=== PATIENT | male | born 1955 | race Caucasian/White ===

== ENCOUNTER 2018-02-19 06:51 | Day surgery (SDC) | payer BC ==
[2018-02-19] MEDS ORDERED: TETRACAINE 0.5% OPHTH 1 DOSE AFFEYE ONE ×4 (07:30→09:55)
[2018-02-19] MEDS ORDERED: VIGAMOX 0.5% OPHTH 1 DOSE AFFEYE ONE ×5 (07:35→10:27)
[2018-02-19] MEDS ORDERED: PROLENSA OPHTH 1 DOSE AFFEYE ONE (07:46)
[2018-02-19] MEDS ORDERED: ALPHAGAN-P OPHTH 1 DOSE AFFEYE ONE (07:47)
[2018-02-19] MEDS ORDERED: MYDRIACIL OPHTH 1 DOSE AFFEYE ONE ×3 (07:48→07:50)
[2018-02-19] MEDS ORDERED: CYCLOGYL 1% OPHTH 1 DOSE OP ONE ×3 (07:48→07:50)
[2018-02-19] MEDS ORDERED: AK-DILATE 2.5% OPHTH 1 DOSE OP ONE ×3 (07:48→07:50)
[2018-02-19] MEDS ORDERED: VERSED ONE ×2 (08:11→09:51)
[2018-02-19] MEDS ORDERED: NS 500 ML IV 500 ML IV ONE (08:37)
[2018-02-19] MEDS ORDERED: AK-DILATE 10% OPHTH 1 DOSE AFFEYE ONE ×3 (09:50→09:53)
[2018-02-19] MEDS ORDERED: BETADINE OPHTH SOLN 5% EACHEYE ONE (09:55)
[2018-02-19] MEDS ORDERED: DUOVISC IO ONE (10:14)
[2018-02-19] MEDS ORDERED: BSS OPHTH (PLAIN) 500 ML with VANCOMYCIN HCL 500 MG VIAL 25 MG, ADRENALINE CHL INJ 1 MG IR ONE ×3 (10:14)
[2018-02-19] MEDS ORDERED: ADRENALINE CHL INJ IJ ONE (10:14)
[2018-02-19] MEDS ORDERED: XYLOCAINE-MPF 1% IJ ONE (10:14)
[2018-02-19 11:20] VITALS: BP 139/96
== END 2018-02-19 10:50 | disposition home or self-care (01) ==
LOC: SURG1 06:51
PROVIDERS: ATTEND Ophthalmology
PROC: 08DJ3ZZ Extraction of Right Lens, Percutaneous Approach (ICD-10-PCS; principal; 2018-02-19 09:45)
PROC: 08RJ3JZ Replacement of Right Lens with Synthetic Substitute, Percutaneous Approach (ICD-10-PCS; principal; 2018-02-19 09:45)
DX: H25.11 Age-related nuclear cataract, right eye (principal); H25.011 Cortical age-related cataract, right eye; H52.221 Regular astigmatism, right eye
CPT/HCPCS: A4222; A4217; J0170; J2250; J3370

== ENCOUNTER 2018-03-19 10:30 | Day surgery (SDC) | payer BC ==
[~2018-03-19 10:30] MED LIST: VERSED ONE
[2018-03-19] MEDS ORDERED: TETRACAINE 0.5% OPHTH 1 DOSE AFFEYE ONE ×3 (10:45→13:26)
[2018-03-19] MEDS ORDERED: VIGAMOX 0.5% OPHTH 1 DOSE AFFEYE ONE ×5 (10:50→13:51)
[2018-03-19] MEDS ORDERED: PROLENSA OPHTH 1 DOSE AFFEYE ONE (11:01)
[2018-03-19] MEDS ORDERED: ALPHAGAN-P OPHTH 1 DOSE AFFEYE ONE (11:02)
[2018-03-19] MEDS ORDERED: AK-DILATE 2.5% OPHTH 1 DOSE OP ONE ×3 (11:03→11:05)
[2018-03-19] MEDS ORDERED: MYDRIACIL OPHTH 1 DOSE AFFEYE ONE ×3 (11:03→11:05)
[2018-03-19] MEDS ORDERED: CYCLOGYL 1% OPHTH 1 DOSE OP ONE ×3 (11:03→11:05)
[2018-03-19] MEDS ORDERED: NS 500 ML IV 500 ML IV ONE (11:08)
[2018-03-19] MEDS ORDERED: FENTANYL INJ 100 mcg IVP ONE ×2 (13:11→13:13)
[2018-03-19] MEDS ORDERED: FENTANYL INJ 100 mcg ONE (13:14)
[2018-03-19] MEDS ORDERED: BETADINE OPHTH SOLN 5% EACHEYE ONE (13:26)
[2018-03-19] MEDS ORDERED: ADRENALINE CHL INJ IJ ONE ×2 (13:33→13:39)
[2018-03-19] MEDS ORDERED: XYLOCAINE-MPF 1% IJ ONE ×2 (13:33→13:39)
[2018-03-19] MEDS ORDERED: DUOVISC IO ONE ×2 (13:33→13:39)
[2018-03-19] MEDS ORDERED: BSS OPHTH (PLAIN) 500 ML with VANCOMYCIN HCL 500 MG VIAL 25 MG, ADRENALINE CHL INJ 1 MG IR ONE ×6 (13:35)
[2018-03-19 15:14] VITALS: BP 133/82
== END 2018-03-19 14:15 | disposition home or self-care (01) ==
LOC: SURG1 10:30
PROVIDERS: ATTEND Ophthalmology
PROC: 08RK3JZ Replacement of Left Lens with Synthetic Substitute, Percutaneous Approach (ICD-10-PCS; principal; 2018-03-19 15:15)
PROC: 08DK3ZZ Extraction of Left Lens, Percutaneous Approach (ICD-10-PCS; principal; 2018-03-19 15:15)
DX: H25.12 Age-related nuclear cataract, left eye (principal); H25.012 Cortical age-related cataract, left eye; H52.222 Regular astigmatism, left eye
CPT/HCPCS: A4217; J0170; J2250; J3010; J3370